=== PATIENT | female | born 1955 | race Caucasian/White ===

== ENCOUNTER 2019-07-03 10:39 | Day surgery (SDC) | payer BC ==
[~2019-07-03 10:39] MED LIST: Lactated Ringers 1,000 ML IV SCH; Propofol 200 MG/20 ML SDV ONE; Sodium Chloride 0.9% 10 ML Syringe FLUSH PRN
--- NOTE | 2019-07-03 11:22 | PCM.HPR ---
H & P Addendum review - H & P Addendum Review Date of Original H & P: 06/23/19 Date Reviewed: 07/03/19 Time Reviewed: 11:22 Patient was Examined: No Changes
[2019-07-03] MEDS ORDERED: Propofol 200 MG/20 ML SDV ONE ×2 (11:31→11:57)
--- NOTE | 2019-07-03 11:55 | PCM.OPNOTE ---
- General Post-Op/Procedure Note Date of Surgery/Procedure: 07/03/19 Operative Procedure(s): Colonoscopy Findings: Diverticulosis/itis Pre Op Diagnosis: Hx Polyps, pain Post-Op Diagnosis: Same Anesthesia Technique: MIKE Primary Surgeon: Maldonado Nash Anesthesia Provider: Sadaf Garg Complications: None Condition: Good
--- NOTE | 2019-07-04 10:05 | OR ---
Date of Procedure: 07/03/2019 PREOPERATIVE DIAGNOSES: 1. History of colon polyps. 2. Lower abdominal pain. POSTOPERATIVE DIAGNOSIS: Sigmoid diverticulitis. PROCEDURE: Colonoscopy. ANESTHESIA: IV sedation. DESCRIPTION OF PROCEDURE: The patient was brought to the procedure room where she was placed on her left side and IV sedation administered. Digital rectal exam was performed which was normal. Colonoscope was inserted and advanced to the level of the cecum without difficulty. Cecal position was confirmed by identifying the appendiceal lumen and ileocecal valve. Prep was good and surfaces were well visualized. Upon withdrawing the scope, she does have some diverticulosis in the ascending colon. The transverse colon and descending colon looked normal. Sigmoid colon has multiple diverticula present. There was active diverticulitis at approximately 20 to 25 cm with mucosal swelling making it somewhat difficult to get a good look at all the mucosal surfaces, but no polyps or signs of malignancy were present. The rectum was normal and retroflexion was normal. Air was removed and the scope withdrawn. The patient tolerated the procedure well and returned to Recovery in stable condition. I spoke with her provider, Lindsay Jones, and we will have her continue antibiotics with Cipro and Flagyl for 1 more week. Recommend routine colon screening again in 5 years. ROLAND OH MD /[id number] CC: Lindsay Jones PA-C
== END 2019-07-03 12:35 | disposition home or self-care (01) ==
LOC: LL.SDS 10:39
PROVIDERS: ATTEND Surgery
DX: K57.32 Diverticulitis of large intestine without perforation or abscess without bleeding (principal); K57.30 Diverticulosis of large intestine without perforation or abscess without bleeding; Z86.010 Personal history of colon polyps
CPT/HCPCS: J2704; J7120

== ENCOUNTER 2019-08-29 15:25 | Observation (INO) | payer MEDICARE, OTHER ==
--- NOTE | 2019-08-29 15:38 | EDM.PDOC ---
ED HPI GENERAL MEDICAL PROBLEM - General Chief Complaint: Syncope Stated Complaint: Racing heart, near syncope Time Seen by Provider: 08/29/19 15:30 Source of Information: Reports: Patient, Family (), Old Records ([facility] chart/EMR) History Limitations: Reports: No Limitations - History of Present Illness INITIAL COMMENTS - FREE TEXT/NARRATIVE: The patient was brought to the emergency room via private automobile by her for evaluation of sudden onset nonspecific dizziness, near syncope, moderate diaphoresis, and nausea, which occurred while the patient was sitting at work at about 13:00 hours this afternoon. She has not had similar symptoms in the past. The patient denies any chest pain/pressure, paresthesias, recent decreased exercise tolerance, or any other anginal-type symptoms. No recent history of abdominal pain, heartburn, emesis, diarrhea, melena, or any food intolerance, including fatty foods, etc., although occasional mild gross hematochezia secondary to her hemorrhoids, which is stable at this time. Note recent colonoscopy as below. She denies any gross hematuria, colic, or other UTI symptoms. The patient also denies any recent fever, cough, wheezing, dyspnea , etc.. Onset: Today, Sudden Onset Date: 08/29/19 Onset Time: 13:00 Duration: Improving Location: Reports: Other (No pain) Severity: Moderate Improves with: Reports: None Worsens with: Reports: None Context: Reports: Other (As above). Denies: Sick Contact, Trauma Associated Symptoms: Reports: Diaphoresis, Nausea/Vomiting (No emesis), Syncope (Near syncope as above). Denies: Confusion, Chest Pain, Cough, Fever/Chills, Headaches, Loss of Appetite, Malaise, Seizure, Shortness of Breath, Weakness Treatments COLD HEADER: Reports: Other (see below) (None) - Related Data Allergies Allergy/AdvReac Type Severity Reaction Status Date / Time lisinopril Allergy Cough Verified 08/29/19 15:54 Home Meds: Home Meds Acetaminophen [Tylenol Arthritis] 2 tab PO Q12HR 08/29/19 [History] Past Medical History HEENT History: Reports: Cataract, Impaired Vision, Other (See Below). Denies: Allergic Rhinitis, Glaucoma, Macular Degeneration, Otitis Media, Retinal Detachment Other HEENT History: Patient wears glasses. Cardiovascular History: Reports: Heart Murmur, Hypertension, Other (See Below). Denies: Afib, Aneurysm, Arrhythmia, Blood Clots/VTE/DVT, CAD, Heart Failure, High Cholesterol, PA, PVD, Syncope Other Cardiovascular History: Benign functional heart murmur with pregnancies. She does not know her cholesterol status. Respiratory History: Reports: Bronchitis, Recurrent, COPD, Intubation, Previous , Pneumonia, Recurrent, Pulmonary Fibrosis, Other (See Below). Denies: Asthma, Intubation, Difficult, PE, Pneumothorax, Sleep Apnea, TB Other Respiratory History: COPD and pulmonary fibrosis by chest X ray with recurrent reactive airway disease secondary to infections. Benign bilateral pulmonary granulomas. Gastrointestinal History: Reports: Chronic Diarrhea, Colon Polyp, Diverticulosis , Hemorrhoids, Other (See Below). Denies: Bowel Obstruction, Cholelithiasis, Gastritis, GERD, GI Bleed, Hepatitis, Hiatal Hernia, Inflammatory Bowel Disease , Irritable Bowel Syndrome, Jaundice, Pancreatitis, PUD Other Gastrointestinal History: Colonic polyps of unknown type in 2013 with history of sigmoid diverticulitis on 07/03/19. Genitourinary History: Reports: Urinary Incontinence, Other (See Below). Denies : Acute Renal Failure, Chronic Renal Insuffiency, Renal Calculus, STD, UTI, Recurrent Other Genitourinary History: Urinary stress incontinence. LANGUAGE PATH History: Reports: Dysfunctional Uterine Bleeding, . Denies: Endometriosis, Fibroids, Polycystic Ovaries, Spontaneous : 3 Para: 4 LMP (Approximate): Other (See Below) Other LANGUAGE PATH History: Menopause at age 49. Note premature twin delivery at 34 weeks gestation with both twins dying at one day of age secondary to pulmonary complications. Otherwise, Full term without complications during pregnancies or deliveries. Musculoskeletal History: Reports: Arthritis, Back Pain, Chronic, Neck Pain, Chronic, Osteoarthritis, Other (See Below). Denies: Amputation, Fracture, Gout , Osteoporosis, RA, SLE Other Musculoskeletal History: Right posterior horn meniscal tear and Vleasco's cyst with no surgery by patient history. Mild scoliosis. Neurological History: Reports: None. Denies: Cerebral Aneurysms, Concussion, CVA, Headaches, Chronic, Head Trauma, Migraines, MS, Neuropathy, Peripheral, Parkinson's, Seizure, TIA, Vertigo Psychiatric History: Reports: None. Denies: Abuse, Victim of, ADD, ADHD, Addiction, Anxiety, Depression, Psych Hospitalization(s), PTSD, Suicide Attempt , Suicidal Ideation Endocrine/Metabolic History: Reports: Obesity/BMI 30+. Denies: Diabetes, Gestational, Diabetes, Type I, Diabetes, Type II, Diabetes Mellitus, Type 3c, Hypothyroidism, IDDM Hematologic History: Reports: None. Denies: Anemia, Blood Transfusion(s), Iron Deficiency Immunologic History: Reports: None. Denies: AIDS, HIV, SLE Oncologic (Cancer) History: Reports: None. Denies: Basal Cell Carcinoma, Breast , Cervix, Colon, Leukemia, Lymphoma, Malignant Melanoma, Non-Hodgkin's Lymphoma , Ovarian, Squamous Cell Carcinoma, Uterine Dermatologic History: Reports: None. Denies: Eczema, Psoriasis - Infectious Disease History Infectious Disease History: Reports: Chicken Pox, Measles, Mumps. Denies: C- Difficile, Meningitis, Mononucleosis, MRSA, Pertussis (Whooping Cough), Rheumatic Fever, Rubella, Scarlet Fever, Shingles, TB, VRE - Past Surgical History Head Surgeries/Procedures: Reports: None HEENT Surgical History: Reports: Adenoidectomy, Cataract Surgery, Oral Surgery, Tonsillectomy, Other (See Below). Denies: Eye Surgery, Laser Surgery, LASIK, Myringotomy w Tube(s), Naso-Sinus Surgery Other HEENT Surgeries/Procedures: Tonsillectomy and adenoidectomy at age 4. Bilateral cataract surgery in 2016. Dental extractions. Cardiovascular Surgical History: Reports: None. Denies: Varicose Respiratory Surgical History: Reports: None. Denies: Thoracentesis GI Surgical History: Reports: Colonoscopy, Polypectomy, Other (See Below). Denies: Appendectomy, Cholecystectomy, EGD, Hernia, Inguinal, Hernia Repair/ Other Other GI Surgeries/Procedures: Initial colonoscopy on 01/09/08 with subsequent polyp removal 3 at time of colonoscopy in 2013. Follow-up colonoscopy on that shows sigmoid diverticulitis and some colitis. Female Surgical History: Reports: D&C, Tubal Ligation, Other (See Below). Denies: Breast Biopsy, Section, Hysterectomy, Oophorectomy, Salpingo- Oophorectomy Other Female Surgeries/Procedures: D&C at about age 22 secondary to dysfunctional uterine bleeding. Bilateral tubal ligation at age 28. Endocrine Surgical History: Reports: None. Denies: Thyroid Biopsy Neurological Surgical History: Reports: None. Denies: C-Spine, Discectomy, Laminectomy, Lumbar Spine, Sacral Spine, Spinal Fusion, Thoracic Spine, Vertebroplasty Musculoskeletal Surgical History: Reports: None, Arthroscopic Procedure, Other ( See Below). Denies: Carpal Tunnel, Ganglion Cyst, Joint Replacement, ORIF, Shoulder Surgery Other Musculoskeletal Surgeries/Procedures:: Left knee meniscal repair arthroscopically performed in 2008. Oncologic Surgical History: Reports: None Dermatological Surgical History: Reports: None - Past Imaging History Past Imaging History: Reports: Carotid US (Normal carotid artery Doppler studies on 10/18/16.), CAT Scan (CT scan of the chest with IV contrast on .), MRI (MRI of the right knee on 03/15/09.), PFT (In about 2009 normal by patient history). Denies: Cardiac Echo, Holter Monitor, Stress Testing Social & Family History - Family History HEENT: Reports: None. Denies: Glaucoma, Macular Degeneration, Retinal Detachment Cardiac: Reports: Bypass, CAD, Hypertension, PA, Other (See Below). Denies: Afib, Aneurysm, Arrhythmia, Blood Clots/VTE/DVT, Heart Failure, Heart Murmur, High Cholesterol, Pulmonary Hypertension, PVD/COD, Syncope Other Cardiac Family History: Sister with PA and three-vessel CABG in her early 60s. Father from an PA at age 55. Hypertension in sisters 2. Respiratory: Reports: None. Denies: Asthma, COPD, PE, Pneumothorax, Sleep Apnea GI: Reports: None. Denies: Celiac Disease, Cholelithiasis, Colon Polyps, GERD, GI bleed, Inflammatory Bowel Disease, Irritable Bowel Syndrome, PUD : Reports: None. Denies: Renal Calculus, Renal Disease/Insufficiency OBGYN: Reports: None. Denies: Endometriosis, Recurrent Spontaneous Musculoskeletal: Reports: Arthritis, Osteoarthritis, Other (See Below). Denies : Gout, RA, SLE Other Musculoskeletal Family History: Osteoarthritis in sisters 4. Neurological: Reports: None. Denies: Alzheimers Disease, CVA, Dementia, Migraines, MS, Parkinson's, Seizure, TIA Psychiatric: Denies: Abuse, Victim of, ADD, ADHD, Anxiety, Depression, Psych Hospitalization(s), PTSD, Suicide Attempt Endocrine/Metabolic: Reports: Diabetes, type II, IDDM, Other (See Below). Denies: Diabetes, Gestational, Diabetes, Type I, Diabetes Mellitus, Type 3c, Hypothyroidism Other Endocrine/Metabolic Family History: Sister with AODM. Another sister with IDDM. Grandson with hypothyroidism. Hematologic: Reports: None. Denies: Anemia, SLE Immunologic: Reports: None. Denies: AIDS, HIV, SLE Dermatologic: Reports: None. Denies: Eczema, Psoriasis Oncologic: Reports: Breast, Other (See Below). Denies: Cervix, Colon, Hodgkin' s Lymphoma, Leukemia, Lymphoma, Non-Hodgkin's Lymphoma, Ovarian, Skin, Uterine Other Oncologic Family History: Sister with breast cancer at age 65. - Tobacco Use Smoking Status *Q: Former Smoker Tobacco Use Within Last Twelve Months: No Years of Tobacco use: 18 Packs/Tins Daily: 1 Packs/Tins Daily Comment: No use since 1992. She smoked between ages 19 and 37. Used Tobacco, but Quit: Yes Smoking Cessation Information Provided To Patient: No Second Hand Smoke Exposure: No Second Hand Smoke Education Provided: No - Caffeine Use Caffeine Use: Reports: Coffee (2 cups per day.). Denies: Energy Drinks, Soda, Tea - Alcohol Use Alcohol Use History: Yes Days Per Week of Alcohol Use: 0 Number of Drinks Per Day: 1 Number of Drinks Per Day Comment: One half glass of wine per year. No previous DWIs, problems with alcohol abuse, etc. 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 ED EXAM, GENERAL - Physical Exam Exam: See Below Exam Limited By: No Limitations General Appearance: Alert, WD/WN, No Apparent Distress Eye Exam: Bilateral Eye: EOMI, Normal Inspection (No nystagmus. Patient wearing glasses.), PERRL Ears: Normal External Exam, Normal Canal, Hearing Grossly Normal, Normal TMs Nose: Normal Inspection, Normal Mucosa, No Blood Throat/Mouth: Normal Inspection, Normal Lips, Normal Teeth, Normal Gums, Normal Oropharynx, Normal Voice, No Airway Compromise. No: Dysphagia, Perioral Cyanosis Head: Atraumatic, Normocephalic. No: Facial Swelling, Facial Tenderness, Sinus Tenderness Neck: Normal Inspection, Supple, Non-Tender, Full Range of Motion. No: Carotid Bruit, Lymphadenopathy (L), Lymphadenopathy (R), Thyromegaly Respiratory/Chest: No Respiratory Distress, Lungs Clear, Normal Breath Sounds, No Accessory Muscle Use, Chest Non-Tender. No: Pleural Rub, Retractions Cardiovascular: Normal Peripheral Pulses, Regular Rate, Rhythm, No Edema, No Gallop, No JVD, No Murmur, No Rub. No: Gallop/S3, Gallop/S4, Friction Rub Peripheral Pulses: 2+: Radial (L), Radial (R), Dorsalis Pedis (L), Dorsalis Pedis (R) GI/Abdominal: Normal Bowel Sounds, Soft, Non-Tender, No Organomegaly, No Distention, No Abnormal Bruit, No Mass, Other (obese). No: Guarding (Female) Exam: Deferred Rectal (Female) Exam: Deferred Back Exam: Full Range of Motion, Other (Scoliosismild). No: CVA Tenderness (L) , CVA Tenderness (R), Muscle Spasm Extremities: Normal Inspection, Normal Range of Motion, Non-Tender, No Pedal Edema, Normal Capillary Refill. No: Britt's Sign Neurological: Alert, Oriented, CN II-XII Intact, Normal Cognition, Normal Gait, Normal Reflexes (Negative Babinski's), No Motor/Sensory Deficits Psychiatric: Normal Affect, Normal Mood Skin Exam: Warm, Dry, Intact, Normal Color, No Rash. No: Diaphoretic, Wound/ Incision Lymphatic: No Adenopathy EKG INTERPRETATION EKG Date: 08/29/19 Time: 15:42 Rhythm: NSR (With mild sinus arrhythmia) Rate (Beats/Min): 91 [place]: Normal (Neutral cardiac axis) P-Wave: Enlarged (Mild diffuse biphasic P waves) QRS: Normal (0.07 seconds) ST-T: Normal (T-wave inversion in lead 3) QT: Normal MA/PQ Interval: 0.15 seconds with pulmonary hypertension by EKG. Comparison: NA - No Prior EKG EKG Interpretation Comments: 1. No acute ischemic changes 2. Left atrial enlargement 3. Pulmonary hypertension by EKG Course - Vital Signs Last Recorded V/S: Last Vital Signs Temp 36.5 C 08/29/19 15:28 Pulse 80 08/29/19 16:33 Resp 22 H 08/29/19 16:33 BP 167/84 H 08/29/19 16:33 Pulse Ox 95 08/29/19 16:33 Vital Signs - 24 hr 08/29/19 08/29/19 08/29/19 15:28 15:40 15:49 Temperature [ 36.5 C Temporal] Pulse, 94 Peripheral Pulse, 89 94 Peripheral [ Left Pulse Oximetry] Respiratory 20 19 Rate Blood Pressure 166/92 H Blood Pressure 168/83 H 166/92 H [Left Upper Arm ] O2 Sat by Pulse 94 L 95 Oximetry O2 Sat by Pulse 94 L Oximetry [Room Air] 08/29/19 16:33 Temperature [ Temporal] Pulse, Peripheral Pulse, 80 Peripheral [ Left Pulse Oximetry] Respiratory 22 H Rate Blood Pressure Blood Pressure 167/84 H [Left Upper Arm ] O2 Sat by Pulse 95 Oximetry O2 Sat by Pulse Oximetry [Room Air] - Orders/Labs/Meds Orders: Active Orders 24 hr Category Date Time Status Cardiac Monitoring [RC] . DIRECTED Care 08/29/19 15:40 Active EKG Documentation Completion [RC] ASDIRECTED Care 08/29/19 15:40 Active Influenza Vaccine Charge [RC] .DISCHARGE Care 08/29/19 16:58 Active Oxygen Therapy, ED [RC] PRN Care 08/29/19 15:40 Active Peripheral IV Care [RC] . DIRECTED Care 08/29/19 15:40 Active Pulse Oximetry [RC] CONTINUOUS Care 08/29/19 15:40 Active Up With Assistance [RC] PFP Care 08/29/19 15:40 Active Vital Signs [RC] PFP Care 08/29/19 15:40 Active Nothing per Oral Now Diet [DIET] Diet 08/29/19 Breakfast Active Chest 1V Frontal [CR] Stat Exams 08/29/19 15:40 Taken FLU Vacc [id number](6MOS+)/PF [Fluzone Quad [id number] Med 08/29/19 17:15 Once Syringe] 60 mcg IM .ONCE ONE Pneumococcal 13-Valent Conjug [Prevnar 13] Med 08/29/19 17:03 Once 0.5 ml IM .ONCE ONE Sodium Chloride 0.9% [Saline Flush] Med 08/29/19 15:39 Active 10 ml FLUSH ASDIRECTED PRN Obtain Past Medical Record [OM.PC] Urgent Oth 08/29/19 15:40 Active Peripheral IV Insertion Adult [OM.PC] Stat Oth 08/29/19 15:40 Ordered Resuscitation Status Stat Resus Stat 08/29/19 15:39 Ordered Medication Orders Influenza Virus Vaccine (Fluzone Quad Syringe) 60 mcg IM .ONCE ONE Stop: 08/29/19 17:16 Pneumococcal 13-Valent Conj Vacc (Prevnar 13) 0.5 ml IM .ONCE ONE Stop: 08/29/19 17:04 Sodium Chloride (Saline Flush) 10 ml FLUSH ASDIRECTED PRN PRN Reason: Keep Vein Open Last Admin: 08/29/19 15:51 Dose: 10 ml Labs: Laboratory Tests 08/29/19 08/29/19 08/29/19 Range/Units 15:40 15:40 15:40 WBC 11.7 H (4.0-10.2) K/uL RBC 4.87 (3.77-5.09) M/uL Hgb 14.0 (11.7-15.5) g/dL Hct 43.6 (34.0-46.0) % MCV 89.5 (84.0-98.0) fL MCH 28.7 (28.2-33.3) pg MCHC 32.1 (31.7-36.0) g/dL RDW 14.2 H (11.2-14.1) % Plt Count 326 (150-350) K/uL Neut % (Auto) 68.2 (45.0-80.0) % Lymph % (Auto) 23.9 (10.0-50.0) % [place] % (Auto) 7.1 (2.0-14.0) % Eos % (Auto) 0.6 (0.0-5.0) % Baso % (Auto) 0.2 (0.0-2.0) % Neut # (Auto) 7.96 H (1.40-7.00) K/uL Lymph # (Auto) 2.79 (0.50-3.50) K/uL [place] # (Auto) 0.83 (0.00-1.00) K/uL Eos # (Auto) 0.07 (0.00-0.50) K/uL Baso # (Auto) 0.02 (0.00-0.20) K/uL PT 10.4 (9.5-12.0) SEC INR 1.0 APTT 28.2 (21.0-31.3) SEC D-Dimer, Quantitative 144 (0-400) ng/mL Sodium (136-145) mmol/L Potassium (3.5-5.1) mmol/L Chloride (98-107) mmol/L Carbon Dioxide (21.0-32.0) mmol/L BUN (7-18) mg/dL Creatinine (0.51-1.17) mg/dL Est Cr Clr Drug Dosing Estimated GFR (MDRD) mL/min Glucose (74-106) mg/dL Lactic Acid (0.4-2.0) mmol/L Uric Acid (2.6-7.2) mg/dL Calcium (8.5-10.1) mg/dL Magnesium (1.8-2.4) mg/dL Total Bilirubin (0.2-1.0) mg/dL AST (15-37) U/L ALT (12-78) U/L Alkaline Phosphatase (46-116) IU/L Creatine Kinase (26-308) U/L Creatine Kinase Index (0.0-2.5) % CK-MB (CK-2) (0.00-3.60) ng/mL Troponin I (0.000-0.056) ng/mL NT-Pro-B Natriuret Pep (0-125) pg/mL Total Protein (6.4-8.2) g/dL Albumin (3.4-5.0) g/dL TSH, Ultra Sensitive (0.358-3.740) mIU/mL 08/29/19 08/29/19 Range/Units 15:40 15:40 WBC (4.0-10.2) K/uL RBC (3.77-5.09) M/uL Hgb (11.7-15.5) g/dL Hct (34.0-46.0) % MCV (84.0-98.0) fL MCH (28.2-33.3) pg MCHC (31.7-36.0) g/dL RDW (11.2-14.1) % Plt Count (150-350) K/uL Neut % (Auto) (45.0-80.0) % Lymph % (Auto) (10.0-50.0) % [place] % (Auto) (2.0-14.0) % Eos % (Auto) (0.0-5.0) % Baso % (Auto) (0.0-2.0) % Neut # (Auto) (1.40-7.00) K/uL Lymph # (Auto) (0.50-3.50) K/uL [place] # (Auto) (0.00-1.00) K/uL Eos # (Auto) (0.00-0.50) K/uL Baso # (Auto) (0.00-0.20) K/uL PT (9.5-12.0) SEC INR APTT (21.0-31.3) SEC D-Dimer, Quantitative (0-400) ng/mL Sodium 140 (136-145) mmol/L Potassium 3.7 (3.5-5.1) mmol/L Chloride 101 (98-107) mmol/L Carbon Dioxide 28.3 (21.0-32.0) mmol/L BUN 15 (7-18) mg/dL Creatinine 0.78 (0.51-1.17) mg/dL Est Cr Clr Drug Dosing TNP Estimated GFR (MDRD) > 60 mL/min Glucose 92 (74-106) mg/dL Lactic Acid 0.6 (0.4-2.0) mmol/L Uric Acid 5.9 (2.6-7.2) mg/dL Calcium 9.6 (8.5-10.1) mg/dL Magnesium 1.9 (1.8-2.4) mg/dL Total Bilirubin 0.6 (0.2-1.0) mg/dL AST 11 L (15-37) U/L ALT 25 (12-78) U/L Alkaline Phosphatase 87 (46-116) IU/L Creatine Kinase 23 L (26-308) U/L Creatine Kinase Index 1.7 (0.0-2.5) % CK-MB (CK-2) 0.40 (0.00-3.60) ng/mL Troponin I 0.000 (0.000-0.056) ng/mL NT-Pro-B Natriuret Pep 76 (0-125) pg/mL Total Protein 7.7 (6.4-8.2) g/dL Albumin 4.0 (3.4-5.0) g/dL TSH, Ultra Sensitive 1.924 (0.358-3.740) mIU/mL Meds: Medications Generic Name Dose Route Start Last Admin Trade Name Freq PRN Reason Stop Dose Admin Influenza Virus Vaccine 60 mcg 08/29/19 17:15 Fluzone Quad [id number] Syringe IM 08/29/19 17:16 .ONCE ONE Pneumococcal 13-Valent Conj Vacc 0.5 ml 08/29/19 17:03 Prevnar 13 IM 08/29/19 17:04 .ONCE ONE Sodium Chloride 10 ml 08/29/19 15:39 08/29/19 15:51 Saline Flush FLUSH 10 ml ASDIRECTED PRN Administration Keep Vein Open Discontinued Medications Generic Name Dose Route Start Last Admin Trade Name Freq PRN Reason Stop Dose Admin Aspirin 324 mg 08/29/19 15:39 08/29/19 15:48 Aspirin CHEW 08/29/19 15:40 324 mg ONETIME ONE Administration Famotidine 40 mg 08/29/19 15:39 08/29/19 15:50 Pepcid IVPUSH 08/29/19 15:40 40 mg ONETIME ONE Administration Influenza Virus Vaccine 1 each 08/29/19 16:58 Pharmacy To Dose - Influenza Vaccine IM 08/29/19 16:59 ONETIME ONE Metoprolol Tartrate 2.5 mg 08/29/19 15:39 08/29/19 15:49 Lopressor IVPUSH 08/29/19 15:40 2.5 mg ONETIME ONE Administration Ticagrelor 180 mg 08/29/19 15:39 08/29/19 15:50 Brilinta PO 08/29/19 15:40 180 mg ONETIME ONE Administration - Radiology Interpretation Free Text/Narrative:: Research Biostatistician showed mild initial sinus tachycardia with heart rates in the 90s to 100s with very occasional PACs and PVCs noted. With average heart rate in the 80s prior to admission after IV Lopressor was given Chest x-ray, portable, shows a somewhat poor inspiratory film with mild to moderate diffuse pulmonary obstructive and fibrotic disease with pulmonary hypertension and borderline mild centralized CHF. Mildly elevated right hemidiaphragm. Moderate cardiomegaly, however note poor inspiration as above. No pulmonary infiltrates, pneumothorax, etc. Departure - Departure Time of Disposition: 17:30 Disposition: Refer to Observation Condition: Good Clinical Impression: Near syncope, Hypothyroidism (acquired), PAC (premature atrial contraction), Osteoarthritis Hypertension Qualifiers: Hypertension type: essential hypertension Qualified Code(s): I10 - Essential ( primary) hypertension COPD (chronic obstructive pulmonary disease) Qualifiers: COPD type: emphysema Emphysema type: panlobular Qualified Code(s): J43.1 - Panlobular emphysema Referrals: PCP,None [Primary Care Provider] - Forms: ED Department Discharge Care Plan Goals: See plan - Problem List & Annotations (1) Near syncope SNOMED Code(s): 615455761 Code(s): R55 - SYNCOPE AND COLLAPSE Status: Acute Priority: High Current Visit: Yes Onset Date: 08/29/19 Annotation/Comment:: Near syncopal episode today as above suspicious of possible cardiac etiology, however no chest pain or pressure. Chest pain protocol was initiated. Initiate standard rule out PA orders. Cardiology consultation depending on her clinical course. Recommend outpatient Cardiolite stress test on an outpatient basis, which would include cardiac clearance for possible upcoming knee surgery with orthopedic consultation scheduled for 09/11/19. Consider echocardiogram on an outpatient basis depending her above cardiac workup as above. (2) PAC (premature atrial contraction) SNOMED Code(s): 355123042 Code(s): I49.1 - ATRIAL PREMATURE DEPOLARIZATION Status: Acute Priority: Medium Current Visit: Yes Onset Date: 08/29/19 Annotation/Comment:: Occasional PACs by cardiac specialist. Nonsymptomatic. Observe for now. (3) Hypertension SNOMED Code(s): 49102684 Code(s): I10 - ESSENTIAL (PRIMARY) HYPERTENSION Status: Chronic Priority : Medium Current Visit: Yes Annotation/Comment:: Previous history of hypertension with lisinopril therapy, however no medical therapy at this time secondary to intolerance with this medication the past, i.e., chronic cough. Initiate diltiazem therapy for now with avoidance of beta jackelyn secondary to her pulmonary disease although IV Lopressor was given in the emergency room without sequelae. Continue to observe closely during this hospitalization and on an outpatient basis. Qualifiers: Hypertension type: essential hypertension Qualified Code(s): I10 - Essential (primary) hypertension (4) COPD (chronic obstructive pulmonary disease) SNOMED Code(s): 73699413 Code(s): J44.9 - CHRONIC OBSTRUCTIVE PULMONARY DISEASE, UNSPECIFIED Status : Chronic Priority: Medium Current Visit: Yes Annotation/Comment:: COPD and pulmonary fibrosis by chest x-ray with no recent fever, bronchitic type symptoms, etc. Mild leukocytosis likely secondary to stress reaction as above. Note previous tobacco use history. She may benefit from repeat PFTs. Recommended update of her influenza and Prenvir boosters during this hospitalization. Qualifiers: COPD type: emphysema Emphysema type: panlobular Qualified Code(s): J43.1 - Panlobular emphysema (5) Osteoarthritis SNOMED Code(s): 392960622 Code(s): M19.90 - UNSPECIFIED OSTEOARTHRITIS, UNSPECIFIED SITE Status: Chronic Priority: Medium Current Visit: Yes Annotation/Comment:: Stable by history. Note upcoming orthopedic consultation as above. Qualifiers: Osteoarthritis location: multiple joints Osteoarthritis type: primary Qualified Code(s): M15.0 - Primary generalized (osteo)arthritis - Problem List Review Problem List Initiated/Reviewed/Updated: Yes - My Orders Last 24 Hours: My Active Orders 08/29/19 15:39 Sodium Chloride 0.9% [Saline Flush] 10 ml FLUSH ASDIRECTED PRN Resuscitation Status Stat 08/29/19 15:40 Cardiac Monitoring [RC] . DIRECTED EKG Documentation Completion [RC] ASDIRECTED Oxygen Therapy, ED [RC] PRN Peripheral IV Care [RC] . DIRECTED Pulse Oximetry [RC] CONTINUOUS Up With Assistance [RC] PFP Vital Signs [RC] PFP Chest 1V Frontal [CR] Stat Obtain Past Medical Record [OM.PC] Urgent Peripheral IV Insertion Adult [OM.PC] Stat 08/29/19 16:58 Influenza Vaccine Charge [RC] .DISCHARGE 08/29/19 17:03 Pneumococcal 13-Valent Conjug [Prevnar 13] 0.5 ml IM .ONCE ONE 08/29/19 17:15 FLU Vacc [id number](6MOS+)/PF [Fluzone Quad [id number] Syringe] 60 mcg IM .ONCE ONE 08/29/19 Breakfast Nothing per Oral Now Diet [DIET] - Assessment/Plan Admission H&P: Please use this note as an admission H&P Last 24 Hours: My Active Orders 08/29/19 15:39 Sodium Chloride 0.9% [Saline Flush] 10 ml FLUSH ASDIRECTED PRN Resuscitation Status Stat 08/29/19 15:40 Cardiac Monitoring [RC] . DIRECTED EKG Documentation Completion [RC] ASDIRECTED Oxygen Therapy, ED [RC] PRN Peripheral IV Care [RC] . DIRECTED Pulse Oximetry [RC] CONTINUOUS Up With Assistance [RC] PFP Vital Signs [RC] PFP Chest 1V Frontal [CR] Stat Obtain Past Medical Record [OM.PC] Urgent Peripheral IV Insertion Adult [OM.PC] Stat 08/29/19 16:58 Influenza Vaccine Charge [RC] .DISCHARGE 08/29/19 17:03 Pneumococcal 13-Valent Conjug [Prevnar 13] 0.5 ml IM .ONCE ONE 08/29/19 17:15 FLU Vacc [id number](6MOS+)/PF [Fluzone Quad [id number] Syringe] 60 mcg IM .ONCE ONE 08/29/19 Breakfast Nothing per Oral Now Diet [DIET] Assessment:: As above Plan: As above. Extensive precautions were given to the patient and her , who are in agreement with the treatment plan. The patient's condition is stable enough for observation status and general supervision. Note that the patient is considering recommended update of her yearly influenza booster, additional Prevnar 13, and scheduling of her mammogram in this facility [facility] at this time.
[2019-08-29] MEDS ORDERED: Aspirin 81 MG Tab.Chew CHEW ONE (15:39)
[2019-08-29] MEDS ORDERED: Ticagrelor 90 MG Tab PO ONE (15:39)
[2019-08-29] MEDS ORDERED: Famotidine 20 MG/2 ML SDV IVPUSH ONE (15:39)
[2019-08-29] MEDS ORDERED: Metoprolol Tartrate 5 MG/5 ML SDV IVPUSH ONE (15:39)
[2019-08-29] MEDS ORDERED: Sodium Chloride 0.9% 10 ML Syringe FLUSH PRN ×2 (15:39→17:28)
[2019-08-29 16:13] LABS: CHLORIDE,CL 101 mmol/L (98-107); SODIUM,NA 140 mmol/L (136-145)
[2019-08-29] MEDS ORDERED: Pneumococcal Polyvalent-23 Vaccine 0.5 ML SDV IM ONE (16:58)
[2019-08-29] MEDS ORDERED: Pneumococcal 13-Valent Conjugate Vaccine 0.5 ML Syringe IM ONE (17:03)
[2019-08-29] MEDS ORDERED: FLU Vacc QS2019-20(6MOS+)/PF 60 MCG/0.5 ML SYRINGE IM ONE (17:15)
[2019-08-29] MEDS ORDERED: Temazepam 15 MG Cap PO PRN (17:28)
[2019-08-29] MEDS ORDERED: Acetaminophen 325 MG Tab PO PRN (17:28)
[2019-08-29] MEDS ORDERED: Diltiazem 180 MG Cap.CD PO SCH (18:00)
[2019-08-30 07:20] LABS: HEMOGLOBIN A1C 6.3 % (4.3-5.7)
[2019-08-30 07:41] LABS: CHLORIDE,CL 104 mmol/L (98-107); SODIUM,NA 141 mmol/L (136-145)
--- NOTE | 2019-08-30 11:57 | PCM.DCSUM1 ---
Discharge Summary - Hospital Course Free Text/Narrative:: Patient is a 63-year-old was admitted to the hospital with near syncopal episodes troponins 3 were negative patient feeling much better. At this time patient will be discharged Diagnosis: Stroke: No - Discharge Data Discharge Date: 08/30/19 Discharge Disposition: Home, Self-Care 01 Condition: Good - Referral to Home Health Primary Care Physician: PCP None - Patient Instructions Diet: Heart Healthy Diet Activity: As Tolerated Driving: May Drive Today Showering/Bathing: May Shower - Discharge Plan *PRESCRIPTION DRUG MONITORING PROGRAM REVIEWED*: No *COPY OF PRESCRIPTION DRUG MONITORING REPORT IN PATIENT KERLINE: No Home Medications: Home Meds Acetaminophen [Tylenol Arthritis] 2 tab PO Q12HR 08/29/19 [History] Oxygen Therapy Mode: Room Air Forms: ED Department Discharge Referrals: PCP,None [Primary Care Provider] - - Discharge Summary/Plan Comment DC Time >30 min.: No Discharge Summary/Plan Comment: Patient will be discharged home today follow-up with primary in 2 days - General Info Date of Service: 08/30/19 Functional Status: Reports: Tolerating Diet - Review of Systems General: Reports: No Symptoms HEENT: Reports: No Symptoms Pulmonary: Reports: No Symptoms Cardiovascular: Reports: No Symptoms Gastrointestinal: Reports: No Symptoms Genitourinary: Reports: No Symptoms Musculoskeletal: Reports: No Symptoms Skin: Reports: No Symptoms Neurological: Reports: No Symptoms Psychiatric: Reports: No Symptoms - Patient Data Vitals - Most Recent: Last Vital Signs Temp 98.1 F 08/30/19 08:00 Pulse 88 08/30/19 08:00 Resp 18 08/30/19 08:00 BP 132/66 08/30/19 08:00 Pulse Ox 95 08/30/19 08:00 Weight - Most Recent: 270 lb 0.002 oz I&O - Last 24 hours: Intake & Output 08/29/19 08/30/19 08/30/19 22:59 06:59 14:59 Intake Total 20 350 Output Total 600 550 Balance -580 -200 Lab Results - Last 24 hrs: Laboratory Results - last 24 hr 08/29/19 08/29/19 08/29/19 Range/Units 15:40 15:40 15:40 WBC 11.7 H (4.0-10.2) K/uL RBC 4.87 (3.77-5.09) M/uL Hgb 14.0 (11.7-15.5) g/dL Hct 43.6 (34.0-46.0) % MCV 89.5 (84.0-98.0) fL MCH 28.7 (28.2-33.3) pg MCHC 32.1 (31.7-36.0) g/dL RDW 14.2 H (11.2-14.1) % Plt Count 326 (150-350) K/uL Neut % (Auto) 68.2 (45.0-80.0) % Lymph % (Auto) 23.9 (10.0-50.0) % [place] % (Auto) 7.1 (2.0-14.0) % Eos % (Auto) 0.6 (0.0-5.0) % Baso % (Auto) 0.2 (0.0-2.0) % Neut # (Auto) 7.96 H (1.40-7.00) K/uL Lymph # (Auto) 2.79 (0.50-3.50) K/uL [place] # (Auto) 0.83 (0.00-1.00) K/uL Eos # (Auto) 0.07 (0.00-0.50) K/uL Baso # (Auto) 0.02 (0.00-0.20) K/uL PT 10.4 (9.5-12.0) SEC INR 1.0 APTT 28.2 (21.0-31.3) SEC D-Dimer, Quantitative 144 (0-400) ng/mL Sodium (136-145) mmol/L Potassium (3.5-5.1) mmol/L Chloride (98-107) mmol/L Carbon Dioxide (21.0-32.0) mmol/L BUN (7-18) mg/dL Creatinine (0.51-1.17) mg/dL Est Cr Clr Drug Dosing Estimated GFR (MDRD) mL/min Glucose (74-106) mg/dL Hemoglobin A1c (4.3-5.7) % Lactic Acid (0.4-2.0) mmol/L Uric Acid (2.6-7.2) mg/dL Calcium (8.5-10.1) mg/dL Magnesium (1.8-2.4) mg/dL Total Bilirubin (0.2-1.0) mg/dL AST (15-37) U/L ALT (12-78) U/L Alkaline Phosphatase (46-116) IU/L Creatine Kinase (26-308) U/L Creatine Kinase Index (0.0-2.5) % CK-MB (CK-2) (0.00-3.60) ng/mL Troponin I (0.000-0.056) ng/mL NT-Pro-B Natriuret Pep (0-125) pg/mL Total Protein (6.4-8.2) g/dL Albumin (3.4-5.0) g/dL Triglycerides (30-150) mg/dL Cholesterol (100-200) mg/dL LDL Cholesterol, Calc (0-100) mg/dL HDL Cholesterol (40-60) mg/dL TSH, Ultra Sensitive (0.358-3.740) mIU/mL 08/29/19 08/29/19 08/29/19 Range/Units 15:40 15:40 20:41 WBC (4.0-10.2) K/uL RBC (3.77-5.09) M/uL Hgb (11.7-15.5) g/dL Hct (34.0-46.0) % MCV (84.0-98.0) fL MCH (28.2-33.3) pg MCHC (31.7-36.0) g/dL RDW (11.2-14.1) % Plt Count (150-350) K/uL Neut % (Auto) (45.0-80.0) % Lymph % (Auto) (10.0-50.0) % [place] % (Auto) (2.0-14.0) % Eos % (Auto) (0.0-5.0) % Baso % (Auto) (0.0-2.0) % Neut # (Auto) (1.40-7.00) K/uL Lymph # (Auto) (0.50-3.50) K/uL [place] # (Auto) (0.00-1.00) K/uL Eos # (Auto) (0.00-0.50) K/uL Baso # (Auto) (0.00-0.20) K/uL PT (9.5-12.0) SEC INR APTT (21.0-31.3) SEC D-Dimer, Quantitative (0-400) ng/mL Sodium 140 (136-145) mmol/L Potassium 3.7 (3.5-5.1) mmol/L Chloride 101 (98-107) mmol/L Carbon Dioxide 28.3 (21.0-32.0) mmol/L BUN 15 (7-18) mg/dL Creatinine 0.78 (0.51-1.17) mg/dL Est Cr Clr Drug Dosing TNP Estimated GFR (MDRD) > 60 mL/min Glucose 92 (74-106) mg/dL Hemoglobin A1c (4.3-5.7) % Lactic Acid 0.6 (0.4-2.0) mmol/L Uric Acid 5.9 (2.6-7.2) mg/dL Calcium 9.6 (8.5-10.1) mg/dL Magnesium 1.9 (1.8-2.4) mg/dL Total Bilirubin 0.6 (0.2-1.0) mg/dL AST 11 L (15-37) U/L ALT 25 (12-78) U/L Alkaline Phosphatase 87 (46-116) IU/L Creatine Kinase 23 L 28 (26-308) U/L Creatine Kinase Index 1.7 2.1 (0.0-2.5) % CK-MB (CK-2) 0.40 0.60 (0.00-3.60) ng/mL Troponin I 0.000 0.000 (0.000-0.056) ng/mL NT-Pro-B Natriuret Pep 76 (0-125) pg/mL Total Protein 7.7 (6.4-8.2) g/dL Albumin 4.0 (3.4-5.0) g/dL Triglycerides (30-150) mg/dL Cholesterol (100-200) mg/dL LDL Cholesterol, Calc (0-100) mg/dL HDL Cholesterol (40-60) mg/dL TSH, Ultra Sensitive 1.924 (0.358-3.740) mIU/mL 08/30/19 08/30/19 08/30/19 Range/Units 06:49 06:49 06:49 WBC 8.7 (4.0-10.2) K/uL RBC 4.64 (3.77-5.09) M/uL Hgb 13.3 (11.7-15.5) g/dL Hct 41.6 (34.0-46.0) % MCV 89.7 (84.0-98.0) fL MCH 28.7 (28.2-33.3) pg MCHC 32.0 (31.7-36.0) g/dL RDW 14.2 H (11.2-14.1) % Plt Count 302 (150-350) K/uL Neut % (Auto) 69.5 (45.0-80.0) % Lymph % (Auto) 21.4 (10.0-50.0) % [place] % (Auto) 8.0 (2.0-14.0) % Eos % (Auto) 0.8 (0.0-5.0) % Baso % (Auto) 0.3 (0.0-2.0) % Neut # (Auto) 6.01 (1.40-7.00) K/uL Lymph # (Auto) 1.85 (0.50-3.50) K/uL [place] # (Auto) 0.69 (0.00-1.00) K/uL Eos # (Auto) 0.07 (0.00-0.50) K/uL Baso # (Auto) 0.03 (0.00-0.20) K/uL PT (9.5-12.0) SEC INR APTT (21.0-31.3) SEC D-Dimer, Quantitative (0-400) ng/mL Sodium 141 (136-145) mmol/L Potassium 4.2 (3.5-5.1) mmol/L Chloride 104 (98-107) mmol/L Carbon Dioxide 26.8 (21.0-32.0) mmol/L BUN 12 (7-18) mg/dL Creatinine 0.73 (0.51-1.17) mg/dL Est Cr Clr Drug Dosing 78.54 Estimated GFR (MDRD) > 60 mL/min Glucose 112 H (74-106) mg/dL Hemoglobin A1c 6.3 H (4.3-5.7) % Lactic Acid (0.4-2.0) mmol/L Uric Acid (2.6-7.2) mg/dL Calcium 9.1 (8.5-10.1) mg/dL Magnesium (1.8-2.4) mg/dL Total Bilirubin 0.7 (0.2-1.0) mg/dL AST 12 L (15-37) U/L ALT 22 (12-78) U/L Alkaline Phosphatase 80 (46-116) IU/L Creatine Kinase 20 L (26-308) U/L Creatine Kinase Index 1.5 (0.0-2.5) % CK-MB (CK-2) 0.30 (0.00-3.60) ng/mL Troponin I 0.000 (0.000-0.056) ng/mL NT-Pro-B Natriuret Pep (0-125) pg/mL Total Protein 6.8 (6.4-8.2) g/dL Albumin 3.5 (3.4-5.0) g/dL Triglycerides 125 (30-150) mg/dL Cholesterol 222 H (100-200) mg/dL LDL Cholesterol, Calc 146 H (0-100) mg/dL HDL Cholesterol 51 (40-60) mg/dL TSH, Ultra Sensitive (0.358-3.740) mIU/mL Med Orders - Current: Current Medications Acetaminophen (Tylenol) 650 mg PO Q4H PRN PRN Reason: Pain Diltiazem HCl (Cardizem Cd) 180 mg PO QPM SHARON Last Admin: 08/29/19 18:18 Dose: 180 mg Pneumococcal 13-Valent Conj Vacc (Prevnar 13) 0.5 ml IM .ONCE ONE Stop: 08/29/19 17:04 Sodium Chloride (Saline Flush) 10 ml FLUSH ASDIRECTED PRN PRN Reason: Keep Vein Open Last Admin: 08/29/19 15:51 Dose: 10 ml Sodium Chloride (Saline Flush) 10 ml FLUSH Q12HR PRN PRN Reason: Keep Vein Open Temazepam (Restoril) 15 mg PO BEDTIME PRN PRN Reason: Insomnia Discontinued Medications Aspirin (Aspirin) 324 mg CHEW ONETIME ONE Stop: 08/29/19 15:40 Last Admin: 08/29/19 15:48 Dose: 324 mg Famotidine (Pepcid) 40 mg IVPUSH ONETIME ONE Stop: 08/29/19 15:40 Last Admin: 08/29/19 15:50 Dose: 40 mg Influenza Virus Vaccine (Pharmacy To Dose - Influenza Vaccine) 1 each IM ONETIME ONE Stop: 08/29/19 16:59 Influenza Virus Vaccine (Fluzone Quad [id number] Syringe) 60 mcg IM .ONCE ONE Stop: 08/29/19 17:16 Last Admin: 08/29/19 18:18 Dose: 60 mcg Metoprolol Tartrate (Lopressor) 2.5 mg IVPUSH ONETIME ONE Stop: 08/29/19 15:40 Last Admin: 08/29/19 15:49 Dose: 2.5 mg Ticagrelor (Brilinta) 180 mg PO ONETIME ONE Stop: 08/29/19 15:40 Last Admin: 08/29/19 15:50 Dose: 180 mg - Exam General: Reports: Alert, Oriented HEENT: Reports: Pupils Equal, Pupils Reactive, EOMI, Mucous Membr. Moist/[place] Neck: Reports: Supple Lungs: Reports: Clear to Auscultation, Normal Respiratory Effort Cardiovascular: Reports: Regular Rate, Regular Rhythm GI/Abdominal Exam: Normal Bowel Sounds, Soft, Non-Tender, No Organomegaly, No Distention, No Abnormal Bruit, No Mass, Pelvis Stable (Female) Exam: Normal External Exam, Normal Speculum Exam, Normal Bimanual Exam Rectal (Female) Exam: Normal Exam, Normal Rectal Tone Back Exam: Reports: Normal Inspection, Full Range of Motion Extremities: Normal Inspection, Normal Range of Motion, Non-Tender, No Pedal Edema, Normal Capillary Refill Skin: Reports: Warm, Dry, Intact Wound/Incisions: Reports: Healing Well Neurological: Reports: No New Focal Deficit Psy/Mental Status: Reports: Alert, Normal Affect, Normal Mood
== END 2019-08-30 12:20 | disposition home or self-care (01) ==
LOC: LL.ED 15:25 → UNDOADMOB 17:06 → LL.MS 17:06 → UNDODISOB 08-30 12:20
PROVIDERS: ADMIT Family Medicine; ATTEND Family Medicine
DX: R55 Syncope and collapse (principal); I10 Essential (primary) hypertension; I49.1 Atrial premature depolarization; J43.1 Panlobular emphysema; M15.0 Primary generalized (osteo)arthritis; E66.9 Obesity, unspecified; Z88.8 Allergy status to other drugs, medicaments and biological substances; Z87.891 Personal history of nicotine dependence; Z68.41 Body mass index [BMI] 40.0-44.9, adult
CPT/HCPCS: 36415; 71045; 80053; 80061; 82550; 82553; 83036; 83605; 83735; 83880; 84443; 84484; 84550; 85025; 85379; 85610; 85730; 90471; 90686; 93005; 96374; 96375; 99285-25; A9270-GY; G0008; G0378; J3490